=== PATIENT | male | born 1945 | race Native Hawaiian/Other Pacific Islander ===

== ENCOUNTER 2023-04-09 18:23 | Emergency (ER) | payer OTHER ==
[~2023-04-09] VITALS: Ht 180.3 cm; Wt 107.0 kg
[~2023-04-09 18:23] MED LIST: ACET-206 PO; AMLODIPINE BESYLATE PO; ATOR20TA2 PO; CHOL100034 PO; COZAAR100 MG PO; CRESTOR5 MG PO; DIVA500T2 PO; DULCOLAX 5MG TAB PO; DULCOLAX5 MG PO; EQ NICOTIN21 MG/241 TD; EUTHYROX175 MCG PO; LEVO0.0529 PO; LOSA50TA PO; METFORMIN 850 MG PO; METFORMIN HYDR850 MG PO; MIRALAX 17GM PAK PO; MIRTAZAPINE7.5 MG PO; NICODERM CQ 21MG/HR TD; NORVASC 5MG TAB PO; OLAN2.5T2 PO; OLANZAPINE5 MG PO; OLANZAPINE7.5 MG PO; OMEP20CA PO; PANTOPRAZOLE 40MG TA PO; POLYETHYLE17 GM/SCO1 PO; SERT50TA PO; TOBRADEX OPTH; TOBRSUS OPTH; TRAZ50TA36 PO; TRAZODONE HYDR150 MG PO; VITAMIN D325 MCG PO
[2023-04-09 18:30] VITALS: BP 128/77; TEMP 98
[2023-04-09 18:59] LABS: PLATELET COUNT 175 K/uL (142-355)
[2023-04-09 19:11] LABS: POTASSIUM 3.6 mmol/L (3.6-5.2)
[2023-04-09] MEDS ORDERED: LIPITOR10 MG PO (21:41)
[2023-04-09] MEDS ORDERED: ATOR20TA2 PO (21:41)
[2023-04-09] MEDS ORDERED: PANTOPRAZOLE 40MG TA PO (21:42)
[2023-04-09] MEDS ORDERED: OLANZAPINE5 MG PO (21:45)
[2023-04-09] MEDS ORDERED: HUMALOG KW100 UNIT/M SC (21:48)
[2023-04-09] MEDS ORDERED: TYLENOL325 MG PO (21:49)
== END 2023-04-09 19:20 | disposition other institution (70) ==
LOC: ED 18:23
PROVIDERS: Family Medicine
DX: F03.90 Unspecified dementia, unspecified severity, without behavioral disturbance, psychotic disturbance, mood disturbance, and anxiety (principal); G30.9 Alzheimer's disease, unspecified; I10 Essential (primary) hypertension; E11.9 Type 2 diabetes mellitus without complications; F17.210 Nicotine dependence, cigarettes, uncomplicated; Z02.79 Encounter for issue of other medical certificate
CPT/HCPCS: 36415; 80053; 81002; 85027; 87635; 93005; 99283; U0003